=== PATIENT | male | born 1945 | race Caucasian/White ===

== ENCOUNTER 2017-11-25 21:18 | Emergency (ER) | payer OTHER ==
[2017-11-25 21:24] VITALS: BP 115/80; PULSE 62; TEMP 98.5; BMI 31.3
--- NOTE | 2017-11-25 21:25 | PDOC ---
Rapid Medical Evaluation Time Seen by Provider: 11/25/17 21:20 Medical Evaluation: Allergies Allergy/AdvReac Type Severity Reaction Status Date / Time No Known Drug Allergies Allergy Verified 09/05/14 18:10 11/25/17 21:21 I have performed a brief in-person evaluation of this patient. The patient presents with a chief complaint of: right thumb laceration/ avulsion of distal thumb Pertinent physical exam findings: avulsed ~ 1x0.5cm piece of distal thumb / no profuse bleeding I have ordered the following: tetanus UTD The patient will proceed to the ED for further evaluation. Discharge Disposition - Referrals Referrals: Simeon Bryan MD [Primary Care Provider] - - Patient Instructions - Post Discharge Activity
--- NOTE | 2017-11-25 22:00 | PDOC ---
History of Present Illness - General Chief Complaint: Laceration Stated Complaint: LACERATION Time Seen by Provider: 11/25/17 21:20 - History of Present Illness Initial Comments: 9-year-old male with a past medical history significant for dyslipidemia on a statin which she cannot recall presents for evaluation of a laceration on his right thumb this happened while at home while cutting a cucumber. He is up-to- date on his tetanus 11/25/17 21:56 Past History - Past Medical History Allergies/Adverse Reactions: Allergies Allergy/AdvReac Type Severity Reaction Status Date / Time No Known Drug Allergies Allergy Verified 11/25/17 21:22 Home Medications: Ambulatory Orders NK [No Known Home Medication] 11/25/17 Anemia: No Asthma: No Cancer: No Cardiac Disorders: No CVA: No COPD: No CHF: No Dementia: No Diabetes: No GI Disorders: No Disorders: No HTN: No Hypercholesterolemia: No Liver Disease: No Psychiatric Problems: Yes (depression,anxiety) Seizures: No Thyroid Disease: No - Surgical History Abdominal Surgery: Yes (Hernia repair 2012) Appendectomy: No Cardiac Surgery: No Cholecystectomy: No Lung Surgery: No Neurologic Surgery: No Orthopedic Surgery: Yes (r shoulder) - Suicide/Smoking/Psychosocial Hx Smoking Status: No Smoking History: Never smoked Have you smoked in the past 12 months: No Number of Cigarettes Smoked Daily: 0 Hx Alcohol Use: No Drug/Substance Use Hx: No Substance Use Type: None Hx Substance Use Treatment: No Review of Systems - Review of Systems Musculoskeletal: Yes: See HPI All Other Systems: Reviewed and Negative *Physical Exam - Vital Signs Last Vital Signs Temp Pulse Resp BP Pulse Ox 98.5 F 62 18 115/80 97 11/25/17 21:22 11/25/17 21:22 11/25/17 21:22 11/25/17 21:22 11/25/17 21:22 - Physical Exam Comments: Ears a dermal avulsion at the tip of the right thumb. There is no foreign body identified. He is neurovascularly intact otherwise. 11/25/17 21:57 Medical Decision Making - Medical Decision Making A Surgicel dressing was placed bleeding was stopped follow-up instructions were given. 11/25/17 21:57 11/25/17 21:58 *DC/Admit/Observation/Transfer Diagnosis at time of Disposition: Avulsion of skin of finger without complication - Discharge Dispostion Disposition: HOME Condition at time of disposition: Stable Decision to Admit order: No - Referrals Referrals: Simeon Bryan MD [Primary Care Provider] - Rj Sweeney MD [Staff Physician] - - Patient Instructions Printed Discharge Instructions: DI for Avulsion Laceration (Not Requiring Sutures) Additional Instructions: This is a dermal avulsion which was treated with the material called Surgicel. Keep your finger and arm elevated above the level of your heart and leave the dressing in place for 48 hours. Follow-up with hand surgery within the next 1-2 days for further evaluation and treatment options. He may remove the dressing in 48 hours. Return to the emergency room if your symptoms worsen or go unresolved. Antibiotics are not required for this. - Post Discharge Activity
== END 2017-11-25 22:24 | disposition home or self-care (01) ==
LOC: JERFT 21:18
DX: S61.001A Unspecified open wound of right thumb without damage to nail, initial encounter (principal); W26.0XXA Contact with knife, initial encounter; Y93.G1 Activity, food preparation and clean up; Y92.030 Kitchen in apartment as the place of occurrence of the external cause; Y99.8 Other external cause status; E78.5 Hyperlipidemia, unspecified
CPT/HCPCS: 99281-25

== ENCOUNTER 2020-08-07 16:52 | Inpatient (IN) | payer OTHER ==
[2020-08-07 19:17] LABS: BASO % 2.6 % (0-2.0); EOS % 0.3 % (0-4.5); HEMATOCRIT 43.9 % (35.4-49); LYMPH % 16.8 % (8-40); MCH 30.7 pg (25.7-33.7); MCHC 34.2 g/dl (32.0-35.9); MEAN CELL VOLUME 89.7 fl (80-96); MEAN PLT VOLUME 9.4 fl (7.5-11.1); NEUT % 68.3 % (42.8-82.8); PLATELET COUNT 120 K/MM3 (134-434); RBC 4.89 M/mm3 (4.00-5.60); RDW 13.4 % (11.9-15.9); WHITE BLOOD COUNT 3.4 K/mm3 (4.0-10.0)
[2020-08-07 19:24] LABS: INR 1.08 (0.83-1.09)
[2020-08-07 19:27] LABS: ACTIVATED PTT 36.2 SECONDS (25.2-36.5)
[2020-08-07] MEDS ORDERED: DEXAMETHASONE SOD PHOSPHATE 4 MG/1 ML VIAL IVPUSH ONE (19:44)
[2020-08-07] MEDS ORDERED: SODIUM CHLORIDE 0.9% 500 ML INFUS.BAG IV ONE (19:44)
[2020-08-07 19:59] LABS: CHLORIDE 105 mmol/L (98-107); POTASSIUM 4.4 mmol/L (3.5-5.1); SODIUM 137 mmol/L (136-145)
[2020-08-07 20:01] LABS: ALBUMIN 3.2 g/dl (3.4-5.0); ANION GAP 6 MMOL/L (8-16); BLOOD UREA NITROGEN 21.9 mg/dL (7-18); CALCIUM 8.4 mg/dL (8.5-10.1); CO2 26 mmol/L (21-32); GLUCOSE,RANDOM 108 mg/dL (74-106)
[2020-08-07] MEDS ORDERED: DEXAMETHASONE SOD PHOSPHATE 10 MG/1 ML VIAL ONE (20:02)
[2020-08-07 20:04] LABS: BILIRUBIN,DIRECT 0.2 mg/dL (0.0-0.2); SGPT/ALT 79 U/L (13-61)
[2020-08-07 20:05] LABS: CREATININE 0.9 mg/dL (0.55-1.3); SGOT/AST 87 U/L (15-37)
[2020-08-07 20:06] LABS: TOT PROT 7.2 g/dl (6.4-8.2)
[2020-08-07 20:07] LABS: ALK PHOS 79 U/L (45-117)
[2020-08-07 20:09] LABS: LDH 414 U/L (87-246)
[2020-08-07 20:14] LABS: BILIRUBIN,TOTAL 0.6 mg/dL (0.2-1)
[2020-08-07 22:29] LABS: EPI CELLS 6 /uL (0-25.1); HYALINE CASTS 1 /uL (0-3.1); URINE APPEARANCE CLEAR; URINE BACTERIA 136 /uL (0-1359); URINE BILIRUBIN NEGATIVE (NEGATIVE); URINE COLOR YELLOW; URINE GLUCOSE (UA) NEGATIVE (NEGATIVE); URINE KETONE TRACE (NEGATIVE); URINE LEUK ESTERASE NEGATIVE (NEGATIVE); URINE NITRITE NEGATIVE (NEGATIVE); URINE PROTEIN 1+ (NEGATIVE); URINE RBC 17 /uL (0-23.9); URINE WBC 7 /uL (0-25.8)
[2020-08-07] MEDS ORDERED: ALBUTEROL SO4 HFA INHALER IH PRN (23:32)
[2020-08-08 00:02] LABS: PLATELET ESTIMATE SLT DECREASE
[2020-08-08 08:24] LABS: POTASSIUM 4.4 mmol/L (3.5-5.1)
[2020-08-08 08:25] LABS: BASO % 0.2 % (0-2.0); HEMOGLOBIN 14.8 GM/dL (11.7-16.9); LYMPH % 18.3 % (8-40); MCH 30.9 pg (25.7-33.7); MCHC 34.3 g/dl (32.0-35.9); MEAN CELL VOLUME 89.9 fl (80-96); MEAN PLT VOLUME 9.5 fl (7.5-11.1); MONO % 11.4 % (3.8-10.2); NEUT % 70.1 % (42.8-82.8); PLATELET COUNT 125 K/MM3 (134-434); RBC 4.78 M/mm3 (4.00-5.60); RDW 13.3 % (11.9-15.9)
[2020-08-08 08:28] LABS: ALBUMIN 2.9 g/dl (3.4-5.0)
[2020-08-08 08:29] LABS: CALCIUM 8.3 mg/dL (8.5-10.1); MAGNESIUM 2.1 mg/dL (1.8-2.4)
[2020-08-08 08:30] LABS: BLOOD UREA NITROGEN 23.7 mg/dL (7-18)
[2020-08-08 08:32] LABS: CREATININE 0.9 mg/dL (0.55-1.3)
[2020-08-08 08:33] LABS: BILIRUBIN,TOTAL 0.9 mg/dL (0.2-1); TOT PROT 6.5 g/dl (6.4-8.2)
[2020-08-08 08:38] LABS: WHITE BLOOD COUNT 1.6 K/mm3 (4.0-10.0)
[2020-08-08] MEDS: CHOLECALCIFEROL (VIT D3) 1,000 UNIT (25 MCG) TABLET PO SCH (11:23)
[2020-08-08] MEDS: ZINC SULFATE 220 MG CAPSULE (FP) PO SCH (11:23)
[2020-08-08] MEDS: DEXAMETHASONE SOD PHOSPHATE 4 MG/1 ML VIAL IVPUSH SCH (11:23)
[2020-08-08] MEDS: ASCORBIC ACID 500 MG TABLET (FP) PO SCH ×2 (11:23→21:41)
[2020-08-08] MEDS ORDERED: guaiFENesin/D-M SUGAR-FREE/ACLHOL-FREE 118 ML BOTTLE PO PRN (11:50)
[2020-08-08 12:42] LABS: ANISOCYTOSIS 0; MACROCYTOSIS 0; PLATELET ESTIMATE DECREASED
[2020-08-08] MEDS ORDERED: PT OWN MED DRAWER 7, Y5N ONE ×2 (12:53→14:40)
[2020-08-08] MEDS ORDERED: REMDESIVIR 200 MG in SODIUM CHLORIDE 210 ML IVPB ONE (15:15)
[2020-08-08] MEDS: ENOXAPARIN NA (PORCINE) 40 MG/0.4 ML DISP.SYRIN SQ SCH (17:45)
[2020-08-08] MEDS ORDERED: guaiFENesin 200 MG/10 ML 10 ML UNIT-DOSE CUPS PO PRN (20:58)
[2020-08-09 07:51] LABS: BASO % 0.1 % (0-2.0); HEMATOCRIT 41.8 % (35.4-49); HEMOGLOBIN 14.2 GM/dL (11.7-16.9); LYMPH % 8.3 % (8-40); MCH 30.7 pg (25.7-33.7); MCHC 34.1 g/dl (32.0-35.9); MEAN CELL VOLUME 90.1 fl (80-96); MEAN PLT VOLUME 9.7 fl (7.5-11.1); MONO % 10.7 % (3.8-10.2); NEUT % 80.9 % (42.8-82.8); PLATELET COUNT 150 K/MM3 (134-434); RBC 4.63 M/mm3 (4.00-5.60); RDW 13.5 % (11.9-15.9); WHITE BLOOD COUNT 6.9 K/mm3 (4.0-10.0)
[2020-08-09 07:56] LABS: POTASSIUM 4.5 mmol/L (3.5-5.1)
[2020-08-09 07:58] LABS: ALBUMIN 2.8 g/dl (3.4-5.0); BLOOD UREA NITROGEN 27.7 mg/dL (7-18); CALCIUM 8.4 mg/dL (8.5-10.1)
[2020-08-09 07:59] LABS: MAGNESIUM 2.2 mg/dL (1.8-2.4)
[2020-08-09 08:02] LABS: CREATININE 0.8 mg/dL (0.55-1.3)
[2020-08-09 08:03] LABS: BILIRUBIN,TOTAL 0.4 mg/dL (0.2-1); TOT PROT 6.4 g/dl (6.4-8.2)
[2020-08-09] MEDS: ZINC SULFATE 220 MG CAPSULE (FP) PO SCH (10:21)
[2020-08-09] MEDS: DEXAMETHASONE SOD PHOSPHATE 4 MG/1 ML VIAL IVPUSH SCH (10:21)
[2020-08-09] MEDS: ENOXAPARIN NA (PORCINE) 40 MG/0.4 ML DISP.SYRIN SQ SCH (10:21)
[2020-08-09] MEDS: ASCORBIC ACID 500 MG TABLET (FP) PO SCH ×2 (10:22→22:23)
[2020-08-09] MEDS: CHOLECALCIFEROL (VIT D3) 1,000 UNIT (25 MCG) TABLET PO SCH (10:22)
[2020-08-09] MEDS: REMDESIVIR 100 MG in SODIUM CHLORIDE 230 ML IVPB SCH (14:45)
[2020-08-09] MEDS: SERTRALINE HCL 50 MG TABLET (FP) PO SCH (14:45)
[2020-08-09] MEDS: FAMOTIDINE 20 MG TABLET PO SCH (22:23)
[2020-08-09] MEDS: LORazepam 1 MG TABLET PO SCH (22:23)
[2020-08-09] MEDS: MEMANTINE HCL 10 MG TABLET (FP) PO SCH (22:23)
[2020-08-09] MEDS: ROSUVASTATIN CA 5 MG TABLET (FP) PO SCH (22:23)
[2020-08-10] MEDS: LORazepam 1 MG TABLET PO SCH ×5 (05:48→21:31)
[2020-08-10] MEDS ORDERED: PATIENT'S OWN MEDICATION (NON-FORMULARY) (Plecanatide [Trulance] 3 MG Tablet) PO SCH (10:00)
[2020-08-10 10:19] LABS: BASO % 0.1 % (0-2.0); HEMOGLOBIN 14.8 GM/dL (11.7-16.9); LYMPH % 6.7 % (8-40); MCH 30.9 pg (25.7-33.7); MCHC 34.5 g/dl (32.0-35.9); MEAN CELL VOLUME 89.6 fl (80-96); MEAN PLT VOLUME 9.5 fl (7.5-11.1); MONO % 11.1 % (3.8-10.2); NEUT % 82.1 % (42.8-82.8); PLATELET COUNT 219 K/MM3 (134-434); RDW 13.2 % (11.9-15.9); WHITE BLOOD COUNT 7.7 K/mm3 (4.0-10.0)
[2020-08-10 10:25] LABS: POTASSIUM 4.3 mmol/L (3.5-5.1)
[2020-08-10] MEDS: CHOLECALCIFEROL (VIT D3) 1,000 UNIT (25 MCG) TABLET PO SCH (10:25)
[2020-08-10] MEDS: DEXAMETHASONE SOD PHOSPHATE 4 MG/1 ML VIAL IVPUSH SCH (10:25)
[2020-08-10] MEDS: SERTRALINE HCL 50 MG TABLET (FP) PO SCH (10:25)
[2020-08-10] MEDS: ASCORBIC ACID 500 MG TABLET (FP) PO SCH ×2 (10:25→21:31)
[2020-08-10] MEDS: ZINC SULFATE 220 MG CAPSULE (FP) PO SCH (10:26)
[2020-08-10] MEDS: ENOXAPARIN NA (PORCINE) 40 MG/0.4 ML DISP.SYRIN SQ SCH (10:26)
[2020-08-10] MEDS: FAMOTIDINE 20 MG TABLET PO SCH ×2 (10:26→21:32)
[2020-08-10 11:02] LABS: BLOOD UREA NITROGEN 31.3 mg/dL (7-18); CALCIUM 8.7 mg/dL (8.5-10.1); MAGNESIUM 2.2 mg/dL (1.8-2.4)
[2020-08-10 11:04] LABS: CREATININE 0.8 mg/dL (0.55-1.3)
[2020-08-10 11:07] LABS: BILIRUBIN,TOTAL 0.7 mg/dL (0.2-1)
[2020-08-10 11:48] VITALS: BMI 29.8
[2020-08-10] MEDS ORDERED: POTASSIUM PHOSPHATE 30 MM in SODIUM CHLORIDE 500 ML IVPB ONE (12:45)
[2020-08-10] MEDS: REMDESIVIR 100 MG in SODIUM CHLORIDE 230 ML IVPB SCH (14:13)
[2020-08-10] MEDS ORDERED: NAPH,MB-DB/K PH,MBDB POWDER PACKET PO ONE (17:15)
[2020-08-10] MEDS ORDERED: PT OWN MED DRAWER 7, Y5N ONE (21:25)
[2020-08-10] MEDS: ROSUVASTATIN CA 5 MG TABLET (FP) PO SCH (21:31)
[2020-08-10] MEDS: MEMANTINE HCL 10 MG TABLET (FP) PO SCH (21:32)
[2020-08-10] MEDS ORDERED: guaiFENesin/D-METHORPHAN HB 10 ML UNIT-DOSE CUPS PO PRN (22:48)
[2020-08-11] MEDS: LORazepam 1 MG TABLET PO SCH ×3 (05:45→21:22)
[2020-08-11 08:05] LABS: BASO % 0.3 % (0-2.0); HEMATOCRIT 40.9 % (35.4-49); LYMPH % 9.7 % (8-40); MCH 30.7 pg (25.7-33.7); MCHC 34.2 g/dl (32.0-35.9); MEAN CELL VOLUME 89.7 fl (80-96); MEAN PLT VOLUME 9.2 fl (7.5-11.1); MONO % 13.8 % (3.8-10.2); NEUT % 76.2 % (42.8-82.8); PLATELET COUNT 204 K/MM3 (134-434); RBC 4.56 M/mm3 (4.00-5.60); RDW 13.4 % (11.9-15.9); WHITE BLOOD COUNT 5.4 K/mm3 (4.0-10.0)
[2020-08-11 09:26] LABS: POTASSIUM 4.1 mmol/L (3.5-5.1)
[2020-08-11 09:28] LABS: ALBUMIN 2.8 g/dl (3.4-5.0); BLOOD UREA NITROGEN 28.3 mg/dL (7-18); CALCIUM 8.5 mg/dL (8.5-10.1)
[2020-08-11 09:31] LABS: CREATININE 0.8 mg/dL (0.55-1.3)
[2020-08-11 09:33] LABS: BILIRUBIN,TOTAL 0.6 mg/dL (0.2-1); TOT PROT 6.3 g/dl (6.4-8.2)
[2020-08-11] MEDS: ENOXAPARIN NA (PORCINE) 40 MG/0.4 ML DISP.SYRIN SQ SCH (10:19)
[2020-08-11] MEDS: DEXAMETHASONE SOD PHOSPHATE 4 MG/1 ML VIAL IVPUSH SCH (10:20)
[2020-08-11] MEDS: FAMOTIDINE 20 MG TABLET PO SCH ×2 (10:22→21:23)
[2020-08-11] MEDS: SERTRALINE HCL 50 MG TABLET (FP) PO SCH (10:22)
[2020-08-11] MEDS: CHOLECALCIFEROL (VIT D3) 1,000 UNIT (25 MCG) TABLET PO SCH (10:22)
[2020-08-11] MEDS: ASCORBIC ACID 500 MG TABLET (FP) PO SCH ×2 (10:22→21:22)
[2020-08-11] MEDS: ZINC SULFATE 220 MG CAPSULE (FP) PO SCH (10:23)
[2020-08-11] MEDS: REMDESIVIR 100 MG in SODIUM CHLORIDE 230 ML IVPB SCH (16:17)
[2020-08-11] MEDS ORDERED: PT OWN MED DRAWER 7, Y5N ONE (21:07)
[2020-08-11] MEDS: ROSUVASTATIN CA 5 MG TABLET (FP) PO SCH (21:22)
[2020-08-11] MEDS: MEMANTINE HCL 10 MG TABLET (FP) PO SCH (21:22)
[2020-08-12] MEDS: LORazepam 1 MG TABLET PO SCH ×3 (06:16→22:30)
[2020-08-12 08:04] LABS: POTASSIUM 4.1 mmol/L (3.5-5.1)
[2020-08-12 08:06] LABS: ALBUMIN 2.7 g/dl (3.4-5.0); BLOOD UREA NITROGEN 21.5 mg/dL (7-18); CALCIUM 8.5 mg/dL (8.5-10.1)
[2020-08-12 08:10] LABS: CREATININE 0.7 mg/dL (0.55-1.3)
[2020-08-12 08:12] LABS: BILIRUBIN,TOTAL 0.8 mg/dL (0.2-1); TOT PROT 6.2 g/dl (6.4-8.2)
[2020-08-12] MEDS: ENOXAPARIN NA (PORCINE) 40 MG/0.4 ML DISP.SYRIN SQ SCH (09:31)
[2020-08-12] MEDS: CHOLECALCIFEROL (VIT D3) 1,000 UNIT (25 MCG) TABLET PO SCH (09:33)
[2020-08-12] MEDS: ZINC SULFATE 220 MG CAPSULE (FP) PO SCH (09:33)
[2020-08-12] MEDS: ASCORBIC ACID 500 MG TABLET (FP) PO SCH ×2 (09:33→22:30)
[2020-08-12] MEDS: FAMOTIDINE 20 MG TABLET PO SCH ×2 (09:33→22:31)
[2020-08-12] MEDS: SERTRALINE HCL 50 MG TABLET (FP) PO SCH (09:34)
[2020-08-12] MEDS: DEXAMETHASONE SOD PHOSPHATE 4 MG/1 ML VIAL IVPUSH SCH (09:34)
[2020-08-12 13:03] LABS: BASO % 0.7 % (0-2.0); EOS % 0.1 % (0-4.5); HEMATOCRIT 41.3 % (35.4-49); LYMPH % 16.7 % (8-40); MEAN CELL VOLUME 91.1 fl (80-96); MEAN PLT VOLUME 9.8 fl (7.5-11.1); MONO % 15.9 % (3.8-10.2); NEUT % 66.6 % (42.8-82.8); PLATELET COUNT 232 K/MM3 (134-434); RBC 4.54 M/mm3 (4.00-5.60); RDW 13.4 % (11.9-15.9); WHITE BLOOD COUNT 4.3 K/mm3 (4.0-10.0)
[2020-08-12] MEDS: REMDESIVIR 100 MG in SODIUM CHLORIDE 230 ML IVPB SCH (17:09)
[2020-08-12] MEDS ORDERED: PT OWN MED DRAWER 7, Y5N ONE (22:26)
[2020-08-12] MEDS: MEMANTINE HCL 10 MG TABLET (FP) PO SCH (22:30)
[2020-08-12] MEDS: ROSUVASTATIN CA 5 MG TABLET (FP) PO SCH (22:30)
[2020-08-13] MEDS: LORazepam 1 MG TABLET PO SCH ×3 (05:46→22:40)
[2020-08-13] MEDS: ZINC SULFATE 220 MG CAPSULE (FP) PO SCH (10:00)
[2020-08-13] MEDS: DEXAMETHASONE SOD PHOSPHATE 4 MG/1 ML VIAL IVPUSH SCH (10:01)
[2020-08-13] MEDS: ASCORBIC ACID 500 MG TABLET (FP) PO SCH ×2 (10:01→22:40)
[2020-08-13] MEDS: ENOXAPARIN NA (PORCINE) 40 MG/0.4 ML DISP.SYRIN SQ SCH (10:01)
[2020-08-13] MEDS: FAMOTIDINE 20 MG TABLET PO SCH ×2 (10:02→22:40)
[2020-08-13] MEDS: CHOLECALCIFEROL (VIT D3) 1,000 UNIT (25 MCG) TABLET PO SCH (10:02)
[2020-08-13] MEDS: SERTRALINE HCL 50 MG TABLET (FP) PO SCH (10:03)
[2020-08-13] MEDS ORDERED: PT OWN MED DRAWER 7, Y5N ONE (22:38)
[2020-08-13] MEDS: MEMANTINE HCL 10 MG TABLET (FP) PO SCH (22:40)
[2020-08-13] MEDS: ROSUVASTATIN CA 5 MG TABLET (FP) PO SCH (22:40)
[2020-08-14] MEDS: LORazepam 1 MG TABLET PO SCH ×2 (05:44→13:42)
[2020-08-14] MEDS ORDERED: PT OWN MED DRAWER 7, Y5N ONE (10:13)
[2020-08-14] MEDS: ASCORBIC ACID 500 MG TABLET (FP) PO SCH (10:19)
[2020-08-14] MEDS: ZINC SULFATE 220 MG CAPSULE (FP) PO SCH (10:19)
[2020-08-14] MEDS: CHOLECALCIFEROL (VIT D3) 1,000 UNIT (25 MCG) TABLET PO SCH (10:19)
[2020-08-14] MEDS: SERTRALINE HCL 50 MG TABLET (FP) PO SCH (10:19)
[2020-08-14] MEDS: ENOXAPARIN NA (PORCINE) 40 MG/0.4 ML DISP.SYRIN SQ SCH (10:20)
[2020-08-14] MEDS: FAMOTIDINE 20 MG TABLET PO SCH (10:20)
[2020-08-14] MEDS: DEXAMETHASONE SOD PHOSPHATE 4 MG/1 ML VIAL IVPUSH SCH (12:00)
[2020-08-14 17:57] VITALS: BP 123/83; PULSE 74; TEMP 98.3
== END 2020-08-14 18:36 | disposition home or self-care (01) | DRG 177 ==
LOC: JER 16:52 → JERBED 20:06 → J7W 08-08 10:54
PROVIDERS: ADMIT Internal Medicine; ATTEND Internal Medicine
PROC: XW033E5 Introduction of Remdesivir Anti-infective into Peripheral Vein, Percutaneous Approach, New Technology Group 5 (ICD-10-PCS; principal; 2020-08-08)
PROC: XW13325 Transfusion of Convalescent Plasma (Nonautologous) into Peripheral Vein, Percutaneous Approach, New Technology Group 5 (ICD-10-PCS; 2020-08-10)
DX: U07.1 COVID-19 (principal); J12.82 Pneumonia due to coronavirus disease 2019; J96.01 Acute respiratory failure with hypoxia; E87.0 Hyperosmolality and hypernatremia; F41.8 Other specified anxiety disorders; R74.01 Elevation of levels of liver transaminase levels; D72.829 Elevated white blood cell count, unspecified; R63.0 Anorexia; Z68.29 Body mass index [BMI] 29.0-29.9, adult; R43.9 Unspecified disturbances of smell and taste; I45.10 Unspecified right bundle-branch block; E83.51 Hypocalcemia
CPT/HCPCS: 36415; 36430; 71045-TC-FY; 80053; 81003; 82248; 82550; 82728; 83605; 83615; 83735; 84100; 84484; 85025; 85379; 85610; 85730; 86140; 86850; 86900; 86901; 87040; 87086; 93005; 93010; 94761; 97116-GP; 97161-GP; 99285-25; C9399; C9803; P9017; U0003

== ENCOUNTER 2021-09-16 07:35 | Emergency (ER) | payer OTHER ==
[2021-09-16 07:49] VITALS: BP 150/75; PULSE 75; TEMP 97; BMI 29.8
[2021-09-16] MEDS ORDERED: LIDOCAINE 5% TOPICAL PATCH TP ONE (08:19)
[2021-09-16] MEDS ORDERED: KETOROLAC TROMETHAMINE 30 MG/1 ML VIAL IM ONE (08:19)
[2021-09-16] MEDS ORDERED: LIDOCAINE 5% TOPICAL PATCH ONE (08:38)
[2021-09-16] MEDS ORDERED: KETOROLAC TROMETHAMINE 30 MG/1 ML VIAL ONE (08:38)
[2021-09-16] MEDS ORDERED: LIDOCAINE PATCH REMOVAL MC ONE (22:00)
== END 2021-09-16 09:56 | disposition home or self-care (01) ==
LOC: JER 07:35
PROC: 3E023GC Introduction of Other Therapeutic Substance into Muscle, Percutaneous Approach (ICD-10-PCS; principal; 2021-09-16)
DX: M54.41 Lumbago with sciatica, right side (principal)
CPT/HCPCS: 73502-TC-RT-FY; 99284-25

== ENCOUNTER 2023-05-07 03:29 | Inpatient (IN) | payer OTHER ==
[2023-05-07] MEDS ORDERED: VANCOMYCIN 1,000 MG in DEXTROSE 5%-WATER - 250 ML IVPB ONE (04:17)
[2023-05-07] MEDS ORDERED: ACETAMINOPHEN 1000 MG/100 ML BAG IVPB ONE (04:17)
[2023-05-07] MEDS ORDERED: AMPICILLIN NA/SULBACTAM NA 1.5 GM in SODIUM CHLORIDE 100 ML IVPB ONE (04:17)
[2023-05-07] MEDS ORDERED: ACETAMINOPHEN INJECTION 100 ML IVPB ONE (04:49)
[2023-05-07] MEDS ORDERED: AMPICILLIN NA/SULBACTAM NA 1.5 GM VIAL ONE (04:49)
[2023-05-07] MEDS ORDERED: VANCOMYCIN 1 GRAM (PRE-DOCKED) 1,000 MG/250 ML BAG IVPB ONE ×2 (05:25→05:27)
[2023-05-07 06:44] LABS: BASO % 0.4 % (0-2.0); HEMATOCRIT 44.3 % (35.4-49); HEMOGLOBIN 14.6 GM/dL (11.7-16.9); LYMPH % 12.7 % (8-40); MCH 30.1 pg (25.7-33.7); MEAN CELL VOLUME 91.3 fl (80-96); MEAN PLT VOLUME 8.8 fl (7.5-11.1); MONO % 12.9 % (3.8-10.2); PLATELET COUNT 179 10^3/uL (134-434); RBC 4.86 M/mm3 (4.00-5.60); RDW 13.3 % (11.9-15.9); WHITE BLOOD COUNT 8.7 K/mm3 (4.0-10.0)
[2023-05-07 07:17] LABS: POTASSIUM 4.3 mmol/L (3.5-5.1)
[2023-05-07 07:19] LABS: CALCIUM 8.6 mg/dL (8.5-10.1)
[2023-05-07 07:20] LABS: ALBUMIN 3.5 g/dl (3.4-5.0); BLOOD UREA NITROGEN 22.7 mg/dL (7-18)
[2023-05-07 07:23] LABS: CREATININE 0.9 mg/dL (0.55-1.3)
[2023-05-07 07:24] LABS: BILIRUBIN,TOTAL 0.6 mg/dL (0.2-1); TOT PROT 6.8 g/dl (6.4-8.2)
[2023-05-07 10:15] LABS: ERYTHROCYTE SEDIMENTATION RATE 7 mm/hr (0-20)
[2023-05-07] MEDS ORDERED: CEFAZOLIN SODIUM 2 GM VIAL ONE (13:30)
[2023-05-07] MEDS: CEFAZOLIN SODIUM 2 GM in DEXTROSE 5%-WATER 100 ML IVPB SCH ×2 (13:42→17:13)
[2023-05-07 16:31] VITALS: BMI 29.9
[2023-05-08] MEDS: CEFAZOLIN SODIUM 2 GM in DEXTROSE 5%-WATER 100 ML IVPB SCH ×3 (06:19→18:11)
[2023-05-08] MEDS: ENOXAPARIN NA (PORCINE) 40 MG/0.4 ML DISP.SYRIN SQ SCH ×2 (09:50→09:58)
[2023-05-08 11:13] LABS: HEMATOCRIT 45.9 % (35.4-49); HEMOGLOBIN 15.2 GM/dL (11.7-16.9); MCH 30.3 pg (25.7-33.7); MCHC 33.2 g/dl (32.0-35.9); MEAN CELL VOLUME 91.2 fl (80-96); MEAN PLT VOLUME 9.3 fl (7.5-11.1); PLATELET COUNT 184 10^3/uL (134-434); RBC 5.03 M/mm3 (4.00-5.60); RDW 13.1 % (11.9-15.9)
[2023-05-08 11:28] LABS: POTASSIUM 3.7 mmol/L (3.5-5.1)
[2023-05-08 11:30] LABS: BLOOD UREA NITROGEN 15.7 mg/dL (7-18)
[2023-05-08 11:33] LABS: CREATININE 0.9 mg/dL (0.55-1.3)
[2023-05-09] MEDS: CEFAZOLIN SODIUM 2 GM in DEXTROSE 5%-WATER 100 ML IVPB SCH ×3 (02:08→18:35)
[2023-05-09 10:20] LABS: POTASSIUM 3.8 mmol/L (3.5-5.1)
[2023-05-09 10:21] LABS: CALCIUM 9.5 mg/dL (8.5-10.1)
[2023-05-09 10:22] LABS: BLOOD UREA NITROGEN 18.7 mg/dL (7-18)
[2023-05-09 10:25] LABS: CREATININE 0.9 mg/dL (0.55-1.3)
[2023-05-09] MEDS: ENOXAPARIN NA (PORCINE) 40 MG/0.4 ML DISP.SYRIN SQ SCH (11:25)
[2023-05-10] MEDS: CEFAZOLIN SODIUM 2 GM in DEXTROSE 5%-WATER 100 ML IVPB SCH ×3 (03:19→18:09)
[2023-05-10] MEDS: ENOXAPARIN NA (PORCINE) 40 MG/0.4 ML DISP.SYRIN SQ SCH (10:09)
[2023-05-11] MEDS: CEFAZOLIN SODIUM 2 GM in DEXTROSE 5%-WATER 100 ML IVPB SCH ×4 (01:21→17:02)
[2023-05-11] MEDS: ENOXAPARIN NA (PORCINE) 40 MG/0.4 ML DISP.SYRIN SQ SCH ×2 (08:40→09:10)
[2023-05-11 18:50] VITALS: RESP 18
[2023-05-12] MEDS: CEFAZOLIN SODIUM 2 GM in DEXTROSE 5%-WATER 100 ML IVPB SCH ×2 (01:40→09:44)
[2023-05-12 09:26] VITALS: BP 123/59; PULSE 63; TEMP 98
[2023-05-12] MEDS: ENOXAPARIN NA (PORCINE) 40 MG/0.4 ML DISP.SYRIN SQ SCH (09:44)
[2023-05-12] MEDS ORDERED: BUDESONIDE/FORMETEROL FUMARATE 160/4.5 mcg INHALER IH SCH (10:00)
[2023-05-12] MEDS ORDERED: SERTRALINE HCL 50 MG TABLET (FP) PO SCH (10:00)
[2023-05-12] MEDS ORDERED: ROSUVASTATIN CA 5 MG TABLET PO SCH (22:00)
[2023-05-12] MEDS ORDERED: MEMANTINE HCL 10 MG TABLET (FP) PO SCH (22:00)
== END 2023-05-12 12:30 | disposition home or self-care (01) | DRG 603 ==
LOC: JER 03:29 → JERBED 10:03 → J5S 15:20
PROVIDERS: ADMIT Internal Medicine; ATTEND Internal Medicine
DX: L03.113 Cellulitis of right upper limb (principal); E78.5 Hyperlipidemia, unspecified; M79.5 Residual foreign body in soft tissue
CPT/HCPCS: 36415; 73130-TC-RT-FY; 73201-TC-RT; 80048; 80053; 82550; 83036; 83605; 83735; 85025; 85027; 85651; 86140; 87040; 99285-25; Q9967

== ENCOUNTER 2023-10-07 23:20 | Observation (INO) | payer OTHER ==
[2023-10-08 00:54] LABS: HEMATOCRIT 44.2 % (35.4-49); MCH 30.8 pg (25.7-33.7); MCHC 33.8 g/dl (32.0-35.9); MEAN PLT VOLUME 10.4 fl (7.5-11.1); PLATELET COUNT 131 10^3/uL (134-434); RBC 4.85 M/mm3 (4.00-5.60); RDW 13.6 % (11.9-15.9); WHITE BLOOD COUNT 4.9 K/mm3 (4.0-10.0)
[2023-10-08 01:06] LABS: INR 1.11 (0.83-1.09); PROTHROMBIN TIME (PATIENT) 12.9 SEC (9.7-13.0)
[2023-10-08 01:09] LABS: ACTIVATED PTT 32.5 SECONDS (25.2-36.5)
[2023-10-08 01:16] LABS: ALBUMIN 3.3 g/dl (3.4-5.0); BLOOD UREA NITROGEN 29.1 mg/dL (7-18); CALCIUM 8.8 mg/dL (8.5-10.1); MAGNESIUM 2.3 mg/dL (1.8-2.4)
[2023-10-08 01:21] LABS: BILIRUBIN,TOTAL 0.8 mg/dL (0.2-1); TOT PROT 6.4 g/dl (6.4-8.2)
[2023-10-08] MEDS ORDERED: DOCUSATE SODIUM 100 MG CAPSULE (FP) PO PRN (03:22)
[2023-10-08] MEDS ORDERED: ACETAMINOPHEN 325 MG TABLET (FP) PO PRN (03:22)
[2023-10-08] MEDS ORDERED: LORazepam 0.5 MG TABLET PO PRN (04:14)
[2023-10-08] MEDS: SODIUM CHLORIDE 0.45% 1,000 ML IV SCH (04:37)
[2023-10-08 05:01] LABS: ANISOCYTOSIS 1+; MACROCYTOSIS 0; ROULEAU 1+
[2023-10-08 06:46] LABS: POTASSIUM 3.9 mmol/L (3.5-5.1)
[2023-10-08 06:47] LABS: BASO % 0.4 % (0-2.0); EOS % 3.8 % (0-4.5); HEMATOCRIT 42.4 % (35.4-49); HEMOGLOBIN 14.1 GM/dL (11.7-16.9); LYMPH % 39.6 % (8-40); MCH 30.3 pg (25.7-33.7); MCHC 33.2 g/dl (32.0-35.9); MEAN CELL VOLUME 91.4 fl (80-96); MEAN PLT VOLUME 10.4 fl (7.5-11.1); MONO % 19.6 % (3.8-10.2); NEUT % 36.6 % (42.8-82.8); PLATELET COUNT 125 10^3/uL (134-434); RBC 4.64 M/mm3 (4.00-5.60); RDW 13.8 % (11.9-15.9); WHITE BLOOD COUNT 4.4 K/mm3 (4.0-10.0)
[2023-10-08 06:49] LABS: BLOOD UREA NITROGEN 27.1 mg/dL (7-18); CALCIUM 8.6 mg/dL (8.5-10.1)
[2023-10-08 06:53] LABS: CREATININE 0.9 mg/dL (0.55-1.3)
[2023-10-08 14:03] VITALS: BMI 28.8
[2023-10-08] MEDS: ROSUVASTATIN CA 20 MG TABLET PO SCH (20:59)
[2023-10-09 14:51] VITALS: TEMP 97.9
[2023-10-09 16:13] VITALS: BP 130/80; PULSE 59; RESP 14
== END 2023-10-09 16:30 | disposition home or self-care (01) ==
LOC: JER 23:20 → JERBED 10-08 02:33 → J2W 10-08 14:05
PROVIDERS: ADMIT Family Medicine; ATTEND Family Medicine
DX: I49.3 Ventricular premature depolarization (principal); R00.1 Bradycardia, unspecified; E78.5 Hyperlipidemia, unspecified; R07.89 Other chest pain; D32.9 Benign neoplasm of meninges, unspecified; F41.9 Anxiety disorder, unspecified; K40.90 Unilateral inguinal hernia, without obstruction or gangrene, not specified as recurrent
CPT/HCPCS: 36415; 71045-TC-FY; 80048; 80053; 83735; 84100; 84439; 84443; 84484; 85025; 85610; 85730; 86850; 86900; 86901; 93005; 93010; 93306-TC; 99285-25; G0378

== ENCOUNTER 2024-04-09 04:22 | Day surgery (SDC) | payer OTHER ==
[2024-04-07 11:52] VITALS: BMI 28.5
[2024-04-09] MEDS ORDERED: LIDOCAINE HCL 1%, 10 MG/ML (20ML VIAL) ONE (09:54)
[2024-04-09] MEDS ORDERED: BUPIVACAINE HCL/PF 0.5% (5MG/ML) 10 ML VIAL ONE (09:54)
[2024-04-09] MEDS ORDERED: BENZOIN/ALOE VERA/STORAX/TOLU 58 ML BOTTLE ONE (09:55)
[2024-04-09] MEDS ORDERED: PROPOFOL 20 ML ONE (10:22)
[2024-04-09] MEDS ORDERED: ROCURONIUM BROMIDE 50 MG/5 ML SYRINGE ONE (10:49)
[2024-04-09] MEDS ORDERED: ceFAZolin SODIUM 1 GM VIAL ONE (10:57)
[2024-04-09] MEDS: ceFAZolin SODIUM 1 GM VIAL IVPB ONE (10:58)
[2024-04-09] MEDS: BUPIVACAINE HCL/PF 0.5% (5 MG/ML) 30 ML VIAL IJ ONE ×2 (11:02)
[2024-04-09] MEDS: LIDOCAINE HCL 1%, 10 MG/ML (50 mL VIAL) INF ONE ×2 (11:02)
[2024-04-09] MEDS ORDERED: LIDOCAINE HCL/PF 2% SDV 5ML VIAL ONE (11:10)
[2024-04-09] MEDS ORDERED: ONDANSETRON 4 MG/2 ML VIAL ONE (12:08)
[2024-04-09] MEDS ORDERED: DEXAMETHASONE SOD PHOSPHATE 4 MG/1 ML VIAL ONE (12:08)
[2024-04-09] MEDS ORDERED: SUGAMMADEX SODIUM 200 MG/2 ML VIAL ONE (12:08)
[2024-04-09] MEDS: ACETAMINOPHEN INJECTION 100 ML ONE (13:55)
[2024-04-09] MEDS ORDERED: ONDANSETRON 4 MG/2 ML VIAL IVPUSH PRN (14:59)
[2024-04-09 15:19] VITALS: TEMP 97.4
[2024-04-09] MEDS: oxyCODONE HCL 5 MG TABLET PO PRN (16:13)
[2024-04-09] MEDS ORDERED: oxyCODONE HCL 5 MG TABLET ONE (16:14)
[2024-04-09 16:52] VITALS: BP 125/74; PULSE 72; RESP 20
== END 2024-04-09 17:04 | disposition home or self-care (01) ==
LOC: JASU-SURG 04:22
PROVIDERS: ATTEND Surgery
PROC: 0YU50JZ Supplement Right Inguinal Region with Synthetic Substitute, Open Approach (ICD-10-PCS; principal; 2024-04-09 11:00)
DX: K40.90 Unilateral inguinal hernia, without obstruction or gangrene, not specified as recurrent (principal)
CPT/HCPCS: 94760; C1781; J0131